=== PATIENT | female | born 1965 | race Hispanic/Latino ===

== ENCOUNTER 2018-12-23 09:10 | Emergency (ER) | payer OTHER ==
[2018-12-23 09:24] VITALS: RESP 18
--- NOTE | 2018-12-23 09:40 | ED PDOC ---
Arrival/HPI - General Chief Complaint: Eye Problem Time Seen by Provider: 12/23/18 09:15 Historian: Patient - History of Present Illness Narrative History of Present Illness (Text): 12/23/18 10:22 53 y/o female with PMH of HTN and Hypothyroidism presents to ED c/o right eye blurry vision x 1 month. Pt has had persistently worsening blurry vision with some spots "vickie out" from the vision in her right eye. Pt saw her eye doctor, Dr. Choi yesterday, who diagnosed her with unspecified papilledema and referred her to the ED for further evaluation. Pt is unsure if they asked for any specific testing. Denies fever, chills, headache, left eye symptoms, eye pain, photophobia, eye redness, sore throat, sinus congestion, numbness, weakness, paresthesias, difficulty walking, disequilibrium, difficulty speaking, vertigo, chest pain, SOB, or any other associated complaints. Past Medical History - Provider Review Nursing Documentation Reviewed: Yes - Cardiac Hx Hypertension: Yes - Endocrine/Metabolic Hx Hypothyroidism: Yes - Musculoskeletal/Rheumatological Hx Arthritis: Yes - Psychiatric Hx Substance Use: No - Anesthesia Hx Anesthesia: No Hx Anesthesia Reactions: No Hx Malignant Hyperthermia: No Family/Social History - Physician Review Nursing Documentation Reviewed: Yes Family/Social History: No Known Family HX Smoking Status: Never Smoked Hx Alcohol Use: No Hx Substance Use: No Allergies/Home Meds Allergies/Adverse Reactions: Allergies No Known Allergies Allergy (Verified 12/23/18 09:19) Review of Systems - Physician Review All systems were reviewed & negative as marked: Yes - Review of Systems Constitutional: Normal Eyes: Vision Changes. absent: Photophobia, Eye Pain ENT: Normal. absent: Sore Throat, Sinus Congestion Respiratory: Normal. absent: SOB, Cough Cardiovascular: Normal. absent: Chest Pain, Palpitations Gastrointestinal: Normal. absent: Abdominal Pain, Nausea, Vomiting Genitourinary Female: Normal. absent: Dysuria, Frequency Musculoskeletal: Normal. absent: Arthralgias, Back Pain, Neck Pain Skin: Normal. absent: Rash Neurological: Normal. absent: Headache, Dizziness, Focal Weakness, Gait Changes, Facial Droop, Disequilibrium Endocrine: Normal Hemo/Lymphatic: Normal Psychiatric: Normal Physical Exam Vital Signs Reviewed: Yes Vital Signs Temp Pulse Resp BP Pulse Ox 12/23/18 09:10 97.6 F 93 H 18 148/79 100 Temperature: Afebrile Blood Pressure: Normal Pulse: Regular Respiratory Rate: Normal Appearance: Positive for: Well-Appearing, Non-Toxic, Comfortable Pain Distress: None Mental Status: Positive for: Alert and Oriented X 3 - Systems Exam Head: Present: Atraumatic, Normocephalic. No: Tenderness (No temporal artery tenderness) Pupils: Present: PERRL Extroacular Muscles: Present: EOMI, Other (Visual sibley: Intact to left; Impaired to right temporal sibley). No: Gaze Palsy, Entrapment Conjunctiva: Present: Normal. No: Injected Ears: Present: Normal, NORMAL TM, Normal Canal Mouth: Present: Moist Mucous Membranes Pharnyx: Present: Normal Nose (External): Present: Atraumatic Nose (Internal): Present: Normal Inspection Neck: Present: Normal Range of Motion. No: Meningeal Signs, MIDLINE TENDERNESS, Paraspinal Tenderness Respiratory/Chest: Present: Clear to Auscultation, Good Air Exchange. No: Respiratory Distress, Accessory Muscle Use Cardiovascular: Present: Regular Rate and Rhythm, Normal S1, S2, Peripheal Pulses Present. No: Murmurs Abdomen: Present: Normal Bowel Sounds. No: Tenderness, Distention, Peritoneal Signs, Rebound, Guarding Upper Extremity: Present: Normal Inspection, Normal ROM, NORMAL PULSES, Neurovascularly Intact, Capillary Refill < 2s. No: Cyanosis, Edema, Temperature Abnormalties Lower Extremity: Present: Normal Inspection, NORMAL PULSES, Normal ROM, Neurovascularly Intact, Capillary Refill < 2 s. No: Edema, Temperature Abnormalties Neurological: Present: GCS=15, CN II-XII Intact, Speech Normal, Motor Func Grossly Intact, Normal Sensory Function, Normal Cerebellar Funct, Gait Normal, Memory Normal Skin: Present: Warm, Dry, Normal Color. No: Rashes Lymphatic: Present: Cervical Adenopathy Psychiatric: Present: Alert, Oriented x 3, Normal Insight, Normal Concentration. No: Normal Affect, Normal Mood Medical Decision Making ED Course and Treatment: Initial Plan: * Call Dr. Choi * Tonometry * Visual Acuity * Consult Ophthalmology * Reassess and Disposition Spoke with patient's ophthalmology group, who were unable to provide details on what specific diagnostic testing patient was referred for. Provided me with the following results from her visit yesterday: Visual acuity: R: 20/60 L:20/30 Tonometry: R: 16 L: 15 Patient evaluated at bedside by Dr. Guo who agrees with plan of care. Tonometry performed by him. Results here in ED today - Visual acuity: R: 20/100 L:20/50 B/L: 20/50 Tonometry: R: 20 L: 28 10:25 Case discussed with ophthalmology quality control specialist, Dr. Najera, who advises patient go directly to their office on [facility] from ED. Advises for no imaging or labwork at this time. Vital signs stable, BP normal, will discharge patient for direct followup. Patient agrees with plan of care and states she will go to office as instructed. Provided with address. Diagnostic testing results and plan of care discussed with patient. Strict instructions given regarding prescription use, importance of followup, and signs/symptoms to return to ER including worsening vision, eye pain, headache, dizziness, or any other new/worsening symptoms. Pt verbalized understanding of discussion. Patient is A&Ox3, ambulating with steady gait, with vital signs stable for discharge. Disposition/Present on Arrival - Present on Arrival Any Indicators Present on Arrival: No History of DVT/PE: No History of Uncontrolled Diabetes: No Urinary Catheter: No History of Decub. Ulcer: No History Surgical Site Infection Following: None - Disposition Have Diagnosis and Disposition been Completed?: Yes Diagnosis: Blurry vision Disposition: HOME/ ROUTINE Disposition Time: 10:25 Patient Plan: Discharge Condition: STABLE Additional Instructions: Go straight to Dr. Najera's office, opthalmology Return to ER for any new/worsening symptoms Referrals: Geovani Najera MD [Staff Provider] - Follow up with primary Forms: [employer] (Ukrainian), WORK NOTE
[2018-12-23 10:54] VITALS: BP 158/94; PULSE 92; TEMP 97.9; O2SAT 100
== END 2018-12-23 10:54 | disposition home or self-care (01) ==
LOC: ED 09:10
DX: H53.8 Other visual disturbances (principal)

== ENCOUNTER 2018-12-24 12:44 | Emergency (ER) | payer OTHER ==
[2018-12-24 12:49] VITALS: RESP 18; TEMP 97.9; O2SAT 98; BMI 38.2
[2018-12-24 14:27] LABS: BASO # 0.01 K/mm3 (0.0-2.0); BASO % 0.1 % (0.0-3.0); EOS # 0.1 (0.0-0.7); EOS % 1.1 % (1.5-5.0); GRAN # 4.32 (1.4-6.5); GRAN % 58.5 % (50.0-68.0); HEMOGLOBIN 12.3 g/dL (12.0-16.0); LYMPH # 2.6 (1.2-3.4); LYMPH % 34.9 % (22.0-35.0); MEAN CORPUSCULAR HEMOGLOBIN 26.2 pg (25.0-35.0); MEAN CORPUSCULAR HGB CONC 32.8 g/dl (31.0-37.0); MEAN PLATELET VOLUME 9.7 fl (7.0-11.0); MONO # 0.4 (0.1-0.6); MONO % 5.4 % (1.0-6.0); RBC 4.69 10^6/uL (3.5-6.1); RED CELL DISTRIBUTION WIDTH 14.3 % (11.5-14.5); WHITE BLOOD COUNT 7.4 10^3/uL (4.5-11.0)
[2018-12-24 14:31] LABS: ALBUMIN 4.3 g/dL (3.0-4.8); ALT/SGPT 40 U/L (7-56); AST/SGOT 27 U/L (14-36); BLOOD UREA NITROGEN 14 mg/dL (7-21); CALCIUM 9.8 mg/dL (8.4-10.5); GFR NON-AFRICAN AMERICAN > 60
[2018-12-24] MEDS ORDERED: Gadodiamide 287 MG/ML VIAL (15ML) IV ONE (16:28)
--- NOTE | 2018-12-24 17:07 | MRI ---
Date of service: 12/24/2018 PROCEDURE: MRI BRAIN WITH AND WITHOUT CONTRAST HISTORY: decreased vision in right eye - r/o optic neuritis COMPARISON: None available. TECHNIQUE: Multiplanar, multisequence MR images of the brain were obtained with and without intravenous contrast enhancement. 15 cc of Omniscan FINDINGS: HEMORRHAGE: None DWI: No evidence of an acute or early subacute infarction. BRAIN PARENCHYMA: No mass,mass effect or edema. No atrophy or chronic microvascular ischemic changes. ENHANCEMENT: No abnormal intracranial enhancement. VENTRICLES: Unremarkable. No hydrocephalus. CRANIUM: Unremarkable. ORBITS: Grossly unremarkable. PARANASAL SINUSES/MASTOIDS: Clear VASCULAR SYSTEM: Skull base flow voids intact. OTHER FINDINGS: None . IMPRESSION: Unremarkable pre and post contrast enhanced MRI of the brain.
--- NOTE | 2018-12-24 17:11 | MRI ---
Date of service: 12/24/2018 PROCEDURE: MRI OF THE BRAIN AND ORBITS WITH AND WITHOUT CONTRAST HISTORY: decreased vision in right eye - r/o optic neuritis COMPARISON: None TECHNIQUE: Multiplanar, multisequence MR images of the brain and orbits were obtained with and without contrast enhancement. FINDINGS: ORBITS: Globes, extraocular muscles, optic nerves and retrobulbar fat are unremarkable. No intraorbital mass or infectious/inflammatory changes. No abnormal enhancement. PERIORBITAL SPACE: Unremarkable. SINUSES: Grossly clear. BRAIN: Visualized brain parenchyma unremarkable. No mass, mass effect, edema or hemorrhage. OTHER FINDINGS: None IMPRESSION: Unremarkable pre and post contrast enhanced MRI of the orbits.
--- NOTE | 2018-12-24 18:15 | ED PDOC ---
Arrival/HPI - General Chief Complaint: Eye Problem Historian: Patient - History of Present Illness Narrative History of Present Illness (Text): 12/24/18 18:12 A 53 year old female, whose past medical history includes hypertension and hypothyroidism, present to the emergency department complaining of decreased vision to right eye for approximately 1 month. Patient reports she has been having decreased peripheral vision, along with generalized blurriness. States she was seen by her roustabout hand, who referred her to the ER for stat MRI. Patient denies any trauma, fever, pain with eye movement, or any other complaints at this time. PMD: Dr. Ba Past Medical History - Provider Review Nursing Documentation Reviewed: Yes - Infectious Disease Hx of Infectious Diseases: None - Reproductive Menopause: Yes - Cardiac Hx Hypertension: Yes - Endocrine/Metabolic Hx Hypothyroidism: Yes - Musculoskeletal/Rheumatological Hx Arthritis: Yes - Psychiatric Hx Substance Use: No - Anesthesia Hx Anesthesia: No Hx Anesthesia Reactions: No Hx Malignant Hyperthermia: No Family/Social History - Physician Review Nursing Documentation Reviewed: Yes Family/Social History: No Known Family HX Smoking Status: Never Smoked Hx Alcohol Use: No Hx Substance Use: No Allergies/Home Meds Allergies/Adverse Reactions: Allergies No Known Allergies Allergy (Verified 12/23/18 09:19) Review of Systems - Physician Review All systems were reviewed & negative as marked: Yes - Review of Systems Constitutional: absent: Fevers Eyes: Vision Changes (generalized blurriness and decreased peripheral vision to right eye.). absent: Eye Pain (no pain with right eye movement) Physical Exam Vital Signs Reviewed: Yes Vital Signs Temp Pulse Resp BP Pulse Ox 12/24/18 12:48 97.9 F 95 H 18 120/86 98 Temperature: Afebrile Blood Pressure: Normal Pulse: Regular Respiratory Rate: Normal Appearance: Positive for: Well-Appearing, Non-Toxic, Comfortable Pain Distress: None Mental Status: Positive for: Alert and Oriented X 3 - Systems Exam Head: Present: Atraumatic, Normocephalic Pupils: Present: PERRL Extroacular Muscles: Present: EOMI Conjunctiva: Present: Normal Mouth: Present: Moist Mucous Membranes Neck: Present: Normal Range of Motion Respiratory/Chest: Present: Clear to Auscultation, Good Air Exchange. No: Respiratory Distress, Accessory Muscle Use Cardiovascular: Present: Regular Rate and Rhythm, Normal S1, S2. No: Murmurs Abdomen: No: Tenderness, Distention, Peritoneal Signs Back: Present: Normal Inspection Upper Extremity: Present: Normal Inspection. No: Cyanosis, Edema Lower Extremity: Present: Normal Inspection. No: Edema Neurological: Present: GCS=15, CN II-XII Intact, Speech Normal Skin: Present: Warm, Dry, Normal Color. No: Rashes Psychiatric: Present: Alert, Oriented x 3, Normal Insight, Normal Concentration Medical Decision Making ED Course and Treatment: 12/24/18 18:13 Impression: 53 year old female with right eye generalized blurriness and decreased peripheral vision. Plan: -- Brain MRI -- Orbit, Face, & Neck MRI -- Labs -- Reassess and disposition Prior Visits: Notes and results from previous visits were reviewed. Patient was last seen here in the emergency department on 12/23/2018 for right eye and blurry vision for 1 month. Patient was discharged home. Progress Notes: 12/24/2018 17:04 Brain MRI IMPRESSION: Unremarkable pre and post contrast enhanced MRI of the brain. Dictator: Marcin Tamez MD 12/24/2018 17:06 Orbits/Face/Neck MRI IMPRESSION: Unremarkable pre and post contrast enhanced MRI of the orbits. Dictator: Marcin Tamez MD 12/24/18 18:14 Upon reevaluation, spoke to patient's roustabout hand, who recommended to give patient high dose of steroids. Patient will follow-up with her next week. Patient understands plan. - Lab Interpretations Lab Results: Total Bilirubin 0.3 mg/dL (0.2-1.3) 12/24/18 14:00 AST 27 U/L (14-36) 12/24/18 14:00 ALT 40 U/L (7-56) 12/24/18 14:00 Alkaline Phosphatase 103 U/L (38-126) 12/24/18 14:00 Total Protein 8.6 g/dL (5.8-8.3) H 12/24/18 14:00 Albumin 4.3 g/dL (3.0-4.8) 12/24/18 14:00 Globulin 4.4 gm/dL 12/24/18 14:00 Albumin/Globulin Ratio 1.0 (1.1-1.8) L 12/24/18 14:00 I have reviewed the lab results: Yes - RAD Interpretation Radiology Orders: 12/24/18 13:25 BRAIN W & WO CONTRAST [MRI] Stat ORBIT, FACE & NECK W/WO CONT [MRI] Stat - Medication Orders Current Medication Orders: Discontinued Medications Prednisone (Prednisone Tab) 80 mg PO STAT ONE Stop: 12/24/18 17:44 Last Admin: 12/24/18 17:59 Dose: 80 mg - Scribe Statement The provider has reviewed the documentation as recorded by the Rosa M Michel Provider Scribe Attestation: All medical record entries made by the Scribe were at my direction and personally dictated by me. I have reviewed the chart and agree that the record accurately reflects my personal performance of the history, physical exam, medical decision making, and the department course for this patient. I have also personally directed, reviewed, and agree with the discharge instructions and disposition. Disposition/Present on Arrival - Present on Arrival Any Indicators Present on Arrival: No History of DVT/PE: No History of Uncontrolled Diabetes: No Urinary Catheter: No History of Decub. Ulcer: No History Surgical Site Infection Following: None - Disposition Have Diagnosis and Disposition been Completed?: Yes Diagnosis: Optic neuritis Disposition: HOME/ ROUTINE Disposition Time: 17:00 Condition: GOOD Discharge Instructions (ExitCare): Optic Neuritis Additional Instructions: LEIAS LORENZO, thank you for letting us take care of you today. The emergency medical care you received today was directed at your acute symptoms. If you were prescribed any medication, please fill it and take as directed. It may take several days for your symptoms to resolve. Return to the Emergency Department if your symptoms worsen, do not improve, or if you have any other problems. Please contact your doctor or call one of the physicians/clinics you have been referred to that are listed on the Patient Visit Information form that is included in your discharge packet. Bring any paperwork you were given at discharge with you along with any medications you are taking to your follow up visit. Our treatment cannot replace ongoing medical care by a primary care provider outside of the emergency department. Thank you for allowing the [facility] team to be part of your care today. Follow up with Dr. Acuña as scheduled next week. Return to the emergency room if you have any concerns. Prescriptions: predniSONE [Prednisone] 20 mg PO DAILY #30 tab Referrals: Bob Acuña MD [Staff Provider] - Follow up with primary Forms: [employer] (Hong Konger)
[2018-12-24 18:49] VITALS: BP 132/70; PULSE 85
== END 2018-12-24 18:49 | disposition home or self-care (01) ==
LOC: ED 12:44
DX: H46.9 Unspecified optic neuritis (principal); I10 Essential (primary) hypertension; E03.9 Hypothyroidism, unspecified
CPT/HCPCS: 70543; 70553; 80053; 83516; 83520; 85025; 85651; 86038; 86039; 86160; 86235; 86376; 86431; 99284; A9579